=== PATIENT | male | born 1955 | race Caucasian/White ===

== ENCOUNTER → 2023-10-02 07:00 | Outpatient (REF) | payer BC, SELFPAY | LOC: MRI 3T 07:00 | PROVIDERS: ATTENDING PHYSICIAN Nurse Practitioner Family | DX: M54.2 Cervicalgia (principal); R42 Dizziness and giddiness | CPT/HCPCS: 70553; A9575 ==

== ENCOUNTER → 2023-10-09 11:08 | Outpatient (REF) | payer BC, SELFPAY | LOC: HWRAD 11:08 | PROVIDERS: ATTENDING PHYSICIAN Nurse Practitioner Family | DX: M54.2 Cervicalgia (principal) | CPT/HCPCS: 72050 ==

== ENCOUNTER → 2023-11-06 08:22 | Outpatient (REF) | payer BC, SELFPAY | LOC: RAD 08:22 | PROVIDERS: ATTENDING PHYSICIAN Nurse Practitioner Family | DX: R42 Dizziness and giddiness (principal) | CPT/HCPCS: 93880 ==

== ENCOUNTER → 2023-11-27 11:09 | Outpatient (REF) | payer BC, SELFPAY | LOC: HWRAD 11:09 | PROVIDERS: ATTENDING PHYSICIAN Nurse Practitioner Family | DX: R06.09 Other forms of dyspnea (principal) | CPT/HCPCS: 71046 ==

== ENCOUNTER 2024-01-08 06:27 | Day surgery (SDC) | payer BC, SELFPAY ==
--- NOTE | 2024-01-07 10:26 | ITS.CL.CATH ---
[employer] - Catheterization
Cardiac Catheterization
Procedure Report:
LEFT AND RIGHT HEART CATHETERIZATION
Date of Procedure: January 07, 2024
Referring: Shiela Guerrero
PROCEDURES:
1. Left catheterization, coronary angiogram.
2. Right heart catheterization.
3. Ultrasound-guided access
INDICATION: Patient is a 68-year-old gentleman with past medical history of hypertension, hyperlipidemia, morbid obesity, obstructive sleep apnea, tobacco abuse with ongoing dyspnea on exertion who is now being referred for a left and right heart
catheterization. His most recent echocardiogram from 2022 showed normal biventricular function without significant valvular abnormalities. Lexiscan nuclear stress test from February 20, 2023 showed a small to medium, mild in intensity, mildly
reversible anteroseptal, apical defect consistent with infarct and mahesh-infarct ischemia or soft tissue attenuation. There is also a medium, mild inferior fixed defect that improves with prone imaging consistent with soft tissue attenuation. No
transient ischemic dilatation with ratio 1.17. LVEF on stress test was estimated to be 53%.
ACCESS:
1. Right radial artery, 6 Croatian sheath, under ultrasound guidance.
2. Right brachial vein, 6 Croatian sheath, under ultrasound guidance.
HEMODYNAMICS : (mmHg)
RA (m) : 24
RV (s/d,m) : 46/22, 27
PA (s/d, m) : 42/29, 34
PCWP (m) : 28
PA saturation: 75.6% on room air
AO saturation: 94.7% on room air
SVC saturation: 74.2% on room air
Cardiac Output : 6.2 L/min
Cardiac Index : 2.3 L/min/m-2
Systemic vascular resistance: 891 dsc^(-5)
Pulmonary vascular resistance: 1.05 cordova unit
Heart rate: 51 bpm
AO (s/d) : 132/71
LV (s/d) : 127/19
LVEDP : 34
CORONARY FINDINGS
DOMINANCE: Right
LEFT MAIN: The left main artery is a large-caliber vessel which gives rise to the left anterior descending artery and the left circumflex artery. There is minimal luminal irregularities.
LEFT ANTERIOR DESCENDING: The left anterior descending artery is a medium caliber vessel which gives rise to 1 major diagonal branch as it courses through the anterior interventricular groove towards the apex. There is minimal luminal
irregularities. Of note, the distal to apical LAD beyond the distal septal branch is very small in caliber.
CIRCUMFLEX: The left circumflex artery is a small to medium caliber vessel which gives rise to 1 major medium caliber obtuse marginal branch. There is minimal luminal irregularities.
RIGHT CORONARY ARTERY: The right coronary artery is a large-caliber, dominant vessel which gives rise to the right posterior descending artery and the right posterolateral system. There is minimal luminal irregularities.
SEDATION: 38 minutes of procedural sedation was utilized. An independent nuclear medical technologist was present to assist with and help manage the patient's level of consciousness and physiologic status.
RADIATION SUMMARY: Fluoro Time (min): 3.2, Dose (mGy): 428.5, DAP (Gy.cm2) : 30.1
Closure Device:
1. Vascular band over right radial artery, 13 cc of air.
2. Manual pressure was held over the right brachial venous access site with successful hemostasis
CONCLUSIONS
1. No obstructive coronary artery disease.
2. Significantly elevated right and left-sided filling pressures with normal cardiac output in the setting of low to normal systemic vascular resistance.
RECOMMENDATIONS
1. Aggressive diuresis for his heart failure with preserved ejection fraction and ongoing dyspnea on exertion
2. Management of cardiovascular risk factors.
3. Wean radial band per protocol.
4. Strongly encouraged compliance with CPAP for his underlying obstructive sleep apnea.
Copy to: Shiela Guerrero
Laura Madsen MD, FAC, [facility]
[2024-01-08 06:45] VITALS: BMI 45.6
[2024-01-08] MEDS: LOW STRENGTH ASPIRIN 81 MG PO (07:16)
[2024-01-08 07:40] VITALS: BP 130/64
[2024-01-08 07:44] LABS: Hemoglobin 16.5 g/dL (13.0-18.0); Mean Corpuscular Hgb 30.5 pg (27.0-31.0); Mean Corpuscular Volume 92.4 fL (80.0-94.0); Mean Platelet Volume 9.5 fL (7.4-10.4); Platelet Count 158 10^3/uL (130-400); Red Blood Cell Count 5.41 10^6/uL (4.70-6.10); Red Cell Dist. Width 12.9 % (11.5-14.5); White Blood Cell Count 7.2 10^3/uL (4.8-10.8)
[2024-01-08] MEDS: LASIX 40 MG IV (09:23)
== END 2024-01-08 12:45 | disposition home or self-care (01) ==
LOC: CATH 06:27
PROVIDERS: ATTENDING PHYSICIAN Internal Medicine Interventional Cardiology; FAMILY PHYSICIAN Nurse Practitioner Family; OTHER PHYSICIAN Internal Medicine Cardiovascular Disease
DX: R07.9 Chest pain, unspecified (principal); R06.09 Other forms of dyspnea; R94.31 Abnormal electrocardiogram [ECG] [EKG]; I11.0 Hypertensive heart disease with heart failure; I50.32 Chronic diastolic (congestive) heart failure; E78.5 Hyperlipidemia, unspecified; R73.9 Hyperglycemia, unspecified; J44.9 Chronic obstructive pulmonary disease, unspecified; E66.01 Morbid (severe) obesity due to excess calories; Z68.41 Body mass index [BMI] 40.0-44.9, adult; G47.33 Obstructive sleep apnea (adult) (pediatric); Z87.891 Personal history of nicotine dependence; Z79.82 Long term (current) use of aspirin
CPT/HCPCS: 99152; 99153; C1894; 85027; 93306; 93460; Q9967

== ENCOUNTER → 2024-02-26 12:00 | Outpatient (REF) | payer BC, SELFPAY | LOC: HWRAD 12:00 | PROVIDERS: ATTENDING PHYSICIAN Nurse Practitioner Adult Health; FAMILY PHYSICIAN Nurse Practitioner Family | DX: R91.1 Solitary pulmonary nodule (principal) | CPT/HCPCS: 71250 ==

== ENCOUNTER → 2024-09-26 10:26 | Outpatient (REF) | payer BC, SELFPAY | LOC: HWRAD 10:26 | PROVIDERS: ATTENDING PHYSICIAN Internal Medicine Critical Care Medicine; FAMILY PHYSICIAN Nurse Practitioner Family | DX: R91.1 Solitary pulmonary nodule (principal) | CPT/HCPCS: 71250 ==

== ENCOUNTER → 2024-12-23 08:05 | Outpatient (REF) | payer MEDICARE, SELFPAY | LOC: HWRAD 08:05 | PROVIDERS: ATTENDING PHYSICIAN Nurse Practitioner Family | DX: Z13.6 Encounter for screening for cardiovascular disorders (principal) | CPT/HCPCS: 76770 ==